=== PATIENT | male | born 1975 | race Two or more races ===

== ENCOUNTER 2025-01-29 08:40 | Outpatient (AMB) | payer OTHER, SELFPAY ==
--- NOTE | 2025-01-29 08:42 | MHC.PC.OV ---
Vital Signs 01/29/25 08:49 Height 5 ft 6 in Weight 248 lb BMI 40.0 BP 134/80 Blood Pressure Location Lt brachial Position Sitting Respiration 16 Pulse 72 Pulse Source Pulse Oximeter Temp 98.0 F Temp Source Oral Pulse Oximetry (%) 98 Oxygen Delivery Method Room Air Intake Visit Reasons: Physical xam Intake Note: patient here for new patient visit Event Lighting Specialist Required: No Allergies Penicillins (PCN) Allergy (Mild, Verified 01/29/25 08:48) UNKNOWN penicillin V Allergy (Unknown, Verified 01/29/25 08:46) unsure Medication List - Last Reconciled 01/29/25 by Larry Mukherjee CNP No Known Home Meds Tobacco use date assessed: 01/29/25 Dental Screening Dental Screen Date: 01/29/25 Did you have a dental visit in the last 12 months?: Yes Did you have a dental problem in the last 6 months where you did not have access to dental care?: No Was dental information given to patient?: Patient has dentist HPI HPI Comments History of Present Illness Details 49-year-old male presents to establish care. Prior PCP? - [facility] Last office visit - 1 year ago Last CPE/labs - Several years ago Acute issue(s) - Notes that he had a sleep study done in 04/2024 with [facility], and was diagnosed with mild sleep apnea. CPAP was not recommended. He reports mild anxiety daily for several years. He does not like crowds. He used alcohol and drugs to manage his anxiety. He has not taking any psychotropic medication for anxiety. He denies h/o psychotherapy, psychiatrist, or IPLOC. He denies depression and notes that he feels sad because he is going through a breakup with his girlfriend. He denies h/o SI/HI/AH/VH. He wants to connect with a therapist. Reports intermittent burning sensation to his left lower leg which he attributes to varicose veins. His symptoms have been ongoing for few months. No acute symptoms at this time. Past Medical History - Sleep apnea, myopia (eye exam), eczema, varicose veins bilateral lower extremity, alcohol use disorder (sober x 8 years), Heroin and cocaine/crack abuse (sober x 8 years) Surgical History - Appendectomy, right inguinal hernia repair Family History - Dad: Alcohol abuse - PGM: Diabetes, hypertension, hyperlipidemia Social History - Smokes a pack of cigarettes daily, have been smoking x 36 years, 1ppd x 18 yrs. Does not vape. Does not drink alcohol. Denies recreational drug use - Has been making unhealthy dietary choices. Active but does not exercise. Difficulty falling asleep and maintaining sleep, sleep average 4-5 hours, he snores. Health maintenance - Last eye exam was a year ago with Dr. Soriaon, in [place]. Encouraged to scheduled a follow up eye exam with his vending supervisor. Advised to sign a release for his PCP to obtain his ophthalmology record - Last dental visit was over a years ago; encouraged to schedule an appointment with his dentist for routine dental care - Last tetanus vaccine was within the past 4 years. Record not currently available. - Has not been vaccinated for the flu this season; declines vaccination [facility] Medical History (Updated 01/29/25 @ 11:52 by Larry Mukherjee CNP) Myopia Eczema Drug addiction Alcoholism Surgical History (Updated 01/29/25 @ 09:32 by Jewell Black MA) Hx of appendectomy History of hernia repair Family History (Updated 01/29/25 @ 08:57 by Jewell Black MA) Father Alcohol abuse Paternal Grandmother High blood pressure High cholesterol Diabetes Social History (Updated 01/29/25 @ 08:49 by Jewell Black MA) Housing: Apartment Patient Tobacco Use Status: Current everyday Tobacco user Cigarette Packs Per Day: 1 Cigarettes Per Day: 20 e-Cigarette/Vaping Use: Never Used Second Hand Smoke Exposure: Yes service: No Current occupational status: employed Current occupation: [employer] Current occupational exposures/hazards: Yes Cognitive needs: No Hearing needs: No Vision needs: Yes Questionnaire PHQ-9 Over the last 2 weeks, how often have you been bothered by any of the following problems? 1. Little interest or pleasure in doing things: several days 2. Feeling down, depressed, or hopeless: several days 3. Trouble falling or staying asleep, or sleeping too much: more than half the days 4. Feeling tired or having little energy: nearly every day 5. Poor appetite or overeating: nearly every day 6. Feeling bad about yourself - or that you are a failure or have let yourself or your family down: not at all 7. Trouble concentrating on things, such as reading the newspaper or watching television: nearly every day 8. Moving or speaking so slowly that other people could have noticed. Or the opposite - being so fidgety or restless that you have been moving around a lot more than usual: not at all 9. Thoughts that you would be better off or of hurting yourself in some way: not at all Total score: 13 Depression Screening Interpretation: Positive Depression Screening Done: Yes 78742 - PHQ-9 Billing: Yes Source: Developed by Drs. Medhat Wolfe, Grace Reyes, Ryan Fleming and colleagues, with an educational tiago from [employer]. Thrive Questionnaire Date Thrive assessed: 01/29/25 I am a: Patient What is your living situation today?: I have a steady place to live Within the past 12 months, did the food you bought not last and you didn't have the money to get more?: Never true Within the past 12 months, did you worry whether your food would run out before you got money to buy more?: Never true Do you have trouble paying for medicines?: No Do you have trouble getting transportation to medical appointments?: No Do you have trouble paying your heating and electricity bill?: No Do you have trouble taking care of your child, family member or friend?: No Do you have trouble with day-to-day activities such as bathing, preparing meals, shopping, managing finances, etc.?: No Are you currently unemployed and looking for a job?: No Are you interested in more education?: Yes Please select the resources that you would like help with: Education Currently or been in a relationship where the following occur: No concerns reported THRIVE Score: 0 AUDIT C Alcohol Use Questionnaire (AUDIT-C) 1. How often do you have a drink containing alcohol?: Never 3. How often do you have six or more drinks on one occasion?: Never Total Score: 0 Score Reviewed/Action Taken: Yes WENCESLAO-7 AMB Questionnaire WENCESLAO-7 Date WENCESLAO - 7 assessed: 01/29/25 Feeling nervous, anxious, or on edge: 1 = Several days Not being able to stop or control worryin = Several days Worrying too much about different things: 1 = Several days Trouble relaxin = Several days Being so restless that it is hard to sit still: 0 = Not at all Becoming easily annoyed or irritable: 1 = Several days Feeling afraid as if something awful might happen: 1 = Several days Total WENCESLAO-7 score (0-4 normal; 5-9 mild; 10-14 moderate; 15-21 severe): 6 Source: Developed by Drs. Medhat Wolfe, Grace Reyes, Ryan Fleming and colleagues, with an educational tiago from [employer]. WENCESLAO-7 Assessment Billing WENCESLAO-7 Assessment Tool: WENCESLAO-7 Assessment 20926 Review of Systems Const Details: Denies chills, Denies fatigue, Denies fever(s), Denies headache(s) and Denies weakness HEENT Denies change in vision, Denies dizziness, Denies headache(s), Denies hearing loss, Denies nasal congestion, Denies sinus pain, Denies sinus pressure and Denies sore throat Card Denies chest pain, Denies lightheadedness, Denies dyspnea and Denies other (palpitations) Resp Denies cough, Denies dyspnea and Denies wheezing GI Denies abdominal pain, Denies melena, Denies hematochezia, Denies change in bowel habits, Denies dyspepsia and Denies nausea Denies hematuria and Denies dysuria Musc Denies abnormal gait, Denies myalgias, Denies arthralgias, Denies numbness and Denies tingling Skin/Breast Denies rash, Denies unusual bruising and Denies wounds Neuro Denies abnormal gait, Denies dizziness, Denies headache(s), Denies memory loss, Denies numbness, Denies Sensory deficit (Neuro), Denies tingling and Denies weakness Psych Reports anxiety, Denies depression and Denies memory loss Endo Denies cold intolerance, Denies fatigue, Denies heat intolerance, Denies polydipsia and Denies polyuria Antony/Lymph Denies easy bleeding and Denies easy bruising Aller/Immun Denies wheezing Physical exam (Primary Care) Vital Signs: Last Vital Signs Temp 98.0 F 01/29/25 08:49 Pulse 72 01/29/25 08:49 Resp 16 01/29/25 08:49 BP 134/80 01/29/25 08:49 Pulse Ox 98 01/29/25 08:49 Oxygen Delivery Method Room Air 01/29/25 08:49 BMI result Body Mass Index 40.0 Tobacco/Smoking Status: Tobacco use Status Tobacco use date assessed 01/29/25 01/29/25 08:48 Patient Tobacco Use Status Current everyday Tobacco 01/29/25 08:49 e-Cigarette/Vaping Use Never Used 01/29/25 08:49 PHQ-9: PHQ-9 Score PHQ-9: Total score 13 01/29/25 10:07 Depression Screening Interpretation: Positive Thrive Assessment: Date of Thrive Assessment Date Thrive assessed 01/29/25 01/29/25 08:43 Currently or been in a relationship where the following occur: No concerns reported Const Other: General: no acute distress, well developed, alert and awake Nutritional Appearance: well nourished Orientation/consciousness: patient oriented x3 HENMT Head: Yes normocephalic and Yes atraumatic Ears: hearing grossly normal bilaterally and TM's normal bilaterally General nose exam: Normal external nose present and Normal nares present Mouth: Normal oral and palatal mucosa present and moist mucous membranes Teeth and gingiva: dentition normal Throat: Yes oropharynx normal Eyes Pupils: Equal, round and reactive pupils present and Pupil accommodation reflex normal EOM: EOMs intact bilaterally Neck Neck: Yes normal visual inspection, Yes no lymphadenopathy and Yes trachea midline Thyroid: Thyroid normal Carotids: no bruits Lymphatic: no lymphadenopathy noted Chest Chest palpation & inspection: normal inspection of the chest Resp Effort & Inspection: normal respiratory effort Auscultation: clear to auscultation bilaterally Cardio Rate: regular rate Rhythm: regular rhythm Heart sounds: S1 normal heart sound present, S2 normal heart sound present, no gallops, no murmurs and no rubs Bruits: no abdominal aortic bruits and no carotid bruits GI Palpation (GI): No Abdominal aortic bruit present, Soft to palpation, nontender, No hepatosplenomegaly present and No Rebound tenderness present Auscultation: normal bowel sounds General: Yes no CVA tenderness Back/Spine/Pelvis Back: no CVA tenderness Cervical Spine: cervical ROM normal and No Cervical spine tenderness Thoracic/Lumbar Spine: thoraco-lumbar ROM normal, No pain with thoraco-lumbar ROM, No thoracic spinal tenderness and No lumbar spinal tenderness Skin General: warm and dry. Normal skin color. Normal skin turgor Lesions: no lesions Rashes: no rashes Trauma: no lacerations or abrasions Wounds: no wounds Nails: normal Neuro General: patient oriented x3, gait normal and CN's II-XI intact bilaterally Cranial nerves: Yes Equal, round and reactive pupils present Cognition (Neuro): normal cognition Gait exam (Neuro): Normal gait present Motor exam (neuro): 5/5 motor strength present throughout Sensory Exam: No Sensory deficit (Neuro) Deep tendon reflexes (DTR's): Right patellar reflex intensity grade: 2+ and Left patellar reflex intensity grade: 2+ Extrem General: Yes normal to inspection, No edema and No calf tenderness. Moderately engorged veins to right popliteal fossa and left lower leg, no erythema erythema or edema to surrounding skin, CMS normal Psych Appearance: grossly normal Affect: normal affect Attitude: cooperative Thought process: Normal thought process present Coding Level of Care Code New Pt Level 4 (83926) New Pt Prev Care 40-64y(02052) Diagnoses Normal physical examination, routine Z00.00 Anxiety F41.9 Cigarette smoker F17.210 Sleep apnea G47.30 Morbid obesity with BMI of 40.0-44.9, adult E66.01; Z68.41 Varicose veins of both lower extremities I83.93 Laboratory tests ordered as part of a complete physical exam (CPE) Z00.00 Additional Codes WENCESLAO-7 Assessment Billing - WENCESLAO-7 Assessment Tool: WENCESLAO-7 Assessment 81168 ([id number]) PHQ-9 - 78433 - PHQ-9 Billing: Yes ([id number]) Assessment & Plan Assessment & Plan (1) Normal physical examination, routine: Code(s): Z00.00 - Encounter for general adult medical examination without abnormal findings Category: Medical Plan: No significant functional limitation noted. Healthy diet and routine exercise encouraged. Perform lab work and follow-up for telehealth visit in 2-4 weeks. Return sooner with symptoms or concerns. Verbalized understanding and agreed with the plan. (2) Anxiety: Code(s): F41.9 - Anxiety disorder, unspecified Category: Medical Plan: He reports mild anxiety daily for several years. He does not like crowds. He used alcohol and drugs to manage his anxiety. He has not taking any psychotropic medication for anxiety. He denies h/o psychotherapy, psychiatrist, or IPLOC. He denies depression and notes that he feels sad because he is going through a breakup with his girlfriend. He denies h/o SI/HI/AH/VH. He wants to connect with a therapist. PHQ-9 and WENCESLAO-7 scores revealed moderate depression and mild anxiety respectively. Declines medication treatment for anxiety at this time. Routine exercise encouraged. Message sent to the community health health social work professor to connect the patient to a therapist. Follow-up with worsening or new symptoms. Verbalized understanding and agreed with the plan. (3) Cigarette smoker: Code(s): F17.210 - Nicotine dependence, cigarettes, uncomplicated Category: Social Hx Plan: He smokes a pack of cigarettes daily, have been smoking x 36 years, 1ppd x 18 yrs. Instructed on the health risks and complications of cigarette smoking and cessation encouraged. Nicotine patch ordered; advised to use as prescribed. Follow-up as needed. Verbalized understanding and agreed with the plan. (4) Sleep apnea: Code(s): G47.30 - Sleep apnea, unspecified Category: Medical Plan: He reports difficulty falling asleep and maintaining sleep. He sleep average 4-5 hours. He snores. He notes that he had a sleep study done in 04/2024 with [facility] of [facility], and was diagnosed with mild sleep apnea. CPAP was not recommended. Instructed on sleep hygiene. Routine exercise encouraged for weight management. Referred [place] [facility] [place]. Verbalized understanding and agreed with the plan. (5) Morbid obesity with BMI of 40.0-44.9, adult: Code(s): E66.01 - Morbid (severe) obesity due to excess calories; Z68.41 - Body mass index [BMI] 40.0-44.9, adult Category: Medical Plan: He currently weighs 248 lb, BMI is 40.0. Has been making all of the dietary choices and does not exercise. Healthy diet and routine exercise encouraged. Referred to [facility] php mysql web developer/dietitian. Follow-up as needed. Verbalized understanding and agreed with the plan. (6) Varicose veins of both lower extremities: Code(s): I83.93 - Asymptomatic varicose veins of bilateral lower extremities Category: Medical Plan: Reports intermittent burning sensation to his left lower leg which he attributes to varicose veins. His symptoms have been ongoing for few months. No acute symptoms at this time. Moderately engorged veins to right popliteal fossa and left lower leg, no erythema erythema or edema to surrounding skin, CMS normal. Routine exercise encouraged for weight management and improved circulation. Elevate legs to reduce venous pressure and avoid prolonged standing/sitting. Follow-up with worsening or new signs and symptoms. Verbalized understanding and agreed with the plan. (7) Laboratory tests ordered as part of a complete physical exam (CPE): Code(s): Z00.00 - Encounter for general adult medical examination without abnormal findings Category: Medical Plan: Fasting labs ordered as part of a complete physical exam. Advised to fast for at least 10 hours before getting labs drawn. May drink water Verbalized understanding and agreed with treatment plan. Orders: Orders PSA, Ultra Sensitive Today Z00.00 - Encounter for general adult medical examination without abnormal findings Complete Blood Count Auto Diff Today Z00.00 - Encounter for general adult medical examination without abnormal findings Comprehensive [place]. Panel Fast Today Z00.00 - Encounter for general adult medical examination without abnormal findings Lipid Panel Today Z00.00 - Encounter for general adult medical examination without abnormal findings Microalbumin, Random (w Creat) Today Z00.00 - Encounter for general adult medical examination without abnormal findings TSH reflex Free T4 Today Z00.00 - Encounter for general adult medical examination without abnormal findings UA CC w/rflx Micro + Cult Today Z00.00 - Encounter for general adult medical examination without abnormal findings Vitamin B12 and Folate Today Z00.00 - Encounter for general adult medical examination without abnormal findings Referrals Nutrition/Dietitian Referral E66.01 - Morbid (severe) obesity due to excess calories, Z68.41 - Body mass index [BMI] 40.0-44.9, adult Sleep Medicine Referral G47.30 - Sleep apnea, unspecified Medications: New nicotine 1 patch transdermal DAILY 42 ea 1RF 6 weeks
--- OUTSIDE RECORDS SUMMARY | 2025-01-29 08:44 | XMS_ITS | Clinical Summary ---
Author Organization [facility] ity Address [address] [place] [address] Care Team Providers Care Pillow Filler Name Role Phone Jamilah Godinez MD Primary Care Provider [phone] Social History Tobacco Use Types Packs/Day Years Used Date Smoking Tobacco: Every Day Cigarettes Smokeless Tobacco: Never Alcohol Use Standard Drinks/Week Comments Not Currently 0 (1 standard drink = 0.6 oz pur e alcohol) Sex and Gender Information Value Date Recorded Sex Assigned at Not on file Legal Sex Male 4:37 AM EST Gender Identity Not on file Sexual Orientation Not on file Obstetrics History Last Filed Vital Signs Vital Sign Reading Time Taken Comments Blood Pressure 119/83 11/21/2023 3:04 PM EDT Pulse 99 11/21/2023 3:04 PM EDT Temperature - - Respiratory Rate - - Oxygen Saturation - - Inhaled Oxygen Concentration - - Weight 112 kg (246 lb 12.8 oz) 11/21/2023 3:04 P M EDT Height 167.6 cm (5' 6 ) 11/21/2023 3:04 PM EDT Body Mass Index 39.83 11/21/2023 3:04 PM EDT Plan of Treatment Health Maintenance Due Date Last Done Comments DTaP,Tdap,and Td Vaccines (1 - Tdap) 09/23/1994 Hepatitis B Vaccines (1 of 3 - 19+ 3-dose series) 09/23/1994 Pneumococcal Vaccine: Pediat rics (0 to 5 Years) and At-Risk Patients (6 to 49 Years) (1 of 2 - PCV) 09/23/1994 Cholesterol Screening (Lipid Panel) 06/17/2022 Colorectal Cancer Screening: Colonoscopy 06/17/2022 Depression Screening 06/17/2022 HIV Screening 06/17/2022 Hepatitis C Screening 06/17/2022 Social Influencers of Health Screening 06/17/2022 COVID-19 Vaccine (1 - 2023-2 5 season) 2024 Influenza Vaccine (#1) 2025 HIB Vaccines Aged Out No longer eligi ble based on patient's age to complete this topic HPV Vaccines Aged Out No longer eligi ble based on patient's age to complete this topic Hepatitis A Vaccines Aged Out No long er eligible based on patient's age to complete this topic IPV Vaccines Aged Out No longer eligi ble based on patient's age to complete this topic MMR Vaccines Aged Out No longer eligi ble based on patient's age to complete this topic Meningococcal ACWY Vaccine Aged Out N o longer eligible based on patient's age to complete this topic Meningococcal B Vaccine Aged Out No l onger eligible based on patient's age to complete this topic RSV Immunization Patients Un tariq 20 months Aged Out No longer eligible b ased on patient's age to complete this topic Varicella Vaccines Aged Out No longer eligible based on patient's age to complete this topic Care Teams Pillow Filler Relationship Specialty Start Date End Date Jamilah Godinez MD PCP - General 05/23/23
[2025-01-29 08:49] VITALS: BP 134/80; PULSE 72; RESP 16; TEMP 36.7; O2SAT 98; BMI 40.0
== END 2025-01-29 09:28 | disposition home or self-care (01) ==
LOC: HO.HMCFM 08:41
PROVIDERS: PCP Hospitalist; Visit Provider Nurse Practitioner Family
DX: Z00.00 Encounter for general adult medical examination without abnormal findings (principal); F41.9 Anxiety disorder, unspecified; E66.01 Morbid (severe) obesity due to excess calories; Z68.41 Body mass index [BMI] 40.0-44.9, adult; F17.210 Nicotine dependence, cigarettes, uncomplicated; G47.30 Sleep apnea, unspecified; I83.93 Asymptomatic varicose veins of bilateral lower extremities

== ENCOUNTER → 2025-01-29 08:40 | Outpatient (BNVA) | payer OTHER, SELFPAY | PROVIDERS: PCP Hospitalist; Visit Provider Nurse Practitioner Family | DX: Z00.00 Encounter for general adult medical examination without abnormal findings (principal); F41.9 Anxiety disorder, unspecified; G47.30 Sleep apnea, unspecified; E66.01 Morbid (severe) obesity due to excess calories; Z68.41 Body mass index [BMI] 40.0-44.9, adult; I83.93 Asymptomatic varicose veins of bilateral lower extremities; F17.210 Nicotine dependence, cigarettes, uncomplicated; Z13.31 Encounter for screening for depression; Z13.39 Encounter for screening examination for other mental health and behavioral disorders | CPT/HCPCS: 96127 ==

== ENCOUNTER 2025-02-13 11:30 | Outpatient (REF) | payer OTHER, SELFPAY ==
--- OUTSIDE RECORDS SUMMARY | 2025-02-13 11:32 | XMS_ITS | Clinical Summary ---
Author Organization [facility] ity Address [address] [place] [address] Care Team Providers Care Hydrographer Name Role Phone Jamilah Godinez MD Primary Care Provider [phone] Social History Tobacco Use Types Packs/Day Years [...] Panel) 06/17/2022 Colorectal Cancer Screening: Colonoscopy 06/17/2022 HIV Screening 06/17/2022 Hepatitis C Screening 06/17/2022 Social Influencers of Health Screening 06/17/2022 COVID-19 Vaccine (1 - 2023-2 5 season) 2024 Depression Screening 07/15/2024 Influenza Vaccine (#1) 2025 HIB Vaccines Aged [...] age to complete this topic Care Teams Hydrographer Relationship Specialty Start Date End Date Jamilah Godinez MD PCP - General 05/23/23
[2025-02-13 14:12] LABS: MANUAL DIFF FLAG NO
[2025-02-13 14:20] LABS: Hematocrit 41.0 % (42.0-52.0); Hemoglobin 14.2 g/dl (14.0-18.0); Imm Gran Abs Auto 0.02 X10*3/uL (0.00-0.03); Imm Gran Pct Auto 0.4 % (0.0-0.4); Lymphocytes Absolute Auto 1.9 X10*3/uL (1.2-4.9); Mean Corpuscular HGB Conc 34.6 g/dl (31.0-36.0); Mean Corpuscular Hemoglobin 31.4 pg (27.0-33.0); Mean Corpuscular Volume 90.7 fL (80.0-98.0); NRBC Abs Auto 0.000 X10*3/uL (0.0-0.012); NRBC Pct Auto 0.0 /100WBC (0.0-0.2); Platelet Count 302 X10*3/uL (160-400); Red Blood Count 4.52 X10*6/uL (4.60-5.80); White Blood Count 5.5 X10*3/uL (4.8-10.8)
[2025-02-13 15:02] LABS: Appearance Urine Clear; Glucose Urine UA Negative (Negative); PH 6.0 (5.0-9.0); Specific Gravity - Urine 1.015 (1.005-1.025)
[2025-02-13 15:35] LABS: Alanine Aminotransferase 33 U/L (0-40); Albumin Level 4.4 g/dL (3.5-5.0); Alkaline Phosphatase 91 U/L (39-117); Anion Gap 10 (12-20); Aspartate Amino Transferase 26 U/L (5-37); Blood Urea Nitrogen 14 mg/dL (9-16); Calcium 8.9 mg/dL (8.4-10.2); Carbon Dioxide 26 mmol/L (22-29); Chloride 107 mmol/L (96-108); Cholesterol 179 mg/dL (<200); Estimated Glomerular Filt Rate > 60; HDL Cholesterol 31 mg/dL (>40); Potassium 4.1 mmol/L (3.3-5.1); Sodium 139 mmol/L (135-145); Total Protein 7.4 g/dL (6.5-8.0); Triglycerides 179 mg/dL (<150)
[2025-02-13 16:11] LABS: Folate 6.7 ng/mL (> or = 4.0); Vitamin B12 904 pg/mL (200-900)
[2025-02-17 22:33] LABS: PSA, Ultra Sensitive 0.80 ng/mL
== END 2025-02-13 11:31 | disposition home or self-care (01) ==
LOC: HO.HMGCLDS 11:30
PROVIDERS: PCP Nurse Practitioner Family; Visit Provider Nurse Practitioner Family
DX: Z00.00 Encounter for general adult medical examination without abnormal findings (principal)
CPT/HCPCS: 36415; 80053; 80061; 81003; 82043; 82570; 82607; 82746; 84153; 84443; 85025

== ENCOUNTER 2025-04-19 14:27 | Outpatient (AMB) | payer OTHER, SELFPAY ==
--- NOTE | 2025-04-19 14:19 | A.OFFPC_ITS ---
Intake Visit Reasons: 2-4 labs reviewed Intake Note: patient here for 2-4 Telehealth follow up on lab review Aging Department Supervisor Required: No Allergies Penicillins (PCN) Allergy (Mild, Verified 04/19/25 14:19) UNKNOWN penicillin V Allergy (Unknown, Verified 04/19/25 14:19) unsure Tobacco use date assessed: 04/19/25 Dental Screening Dental Screen Date: 04/19/25 Did you have a dental visit in the last 12 months?: Yes Did you have a dental problem in the last 6 months where you did not have access to dental care?: No Was dental information given to patient?: Patient has dentist HPI HPI Comments History of Present Illness Details 49-year-[facility] of recent lab results. He notes that he eats a lot of fast foods. He is active but does not exercise. He offers no complaints and denies acute symptoms at this time. [facility] Medical History (Updated 04/19/25 @ 14:24 by Larry Mukherjee CNP) Myopia Eczema Drug addiction Alcoholism Surgical History (Updated 01/29/25 @ 09:32 by Jewell Black MA) Hx of appendectomy History of hernia repair Family History (Updated 01/29/25 @ 08:57 by Jewell Black MA) Father Alcohol abuse Paternal Grandmother High blood pressure High cholesterol Diabetes Social History (Updated 01/29/25 @ 08:49 by Jewell Black MA) Housing: Apartment Patient Tobacco Use Status: Current everyday Tobacco user Cigarette Packs Per Day: 1 Cigarettes Per Day: 20 e-Cigarette/Vaping Use: Never Used Second Hand Smoke Exposure: Yes service: No Current occupational status: employed 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 Medhat Wolfe, Grace Reyes, Ryan Fleming and colleagues, with an educational tiago from [employer] Review of Systems Const Details: Denies chills, Denies fatigue, Denies fever(s), Denies headache(s) and Denies weakness Cardiac Denies chest pain, Denies claudication, Denies leg edema, Denies lightheadedness, Denies palpitations, Denies dyspnea, Denies dyspnea on exertion, Denies orthopnea and Denies other (Loss of consciousness) Resp Denies cough, Denies excessive phlegm production, Denies dyspnea, Denies dyspnea on exertion, Denies snoring and Denies wheezing Physical exam (Primary Care) Tobacco/Smoking Status: Tobacco use Status Tobacco use date assessed 04/19/25 04/19/25 14:20 Patient Tobacco Use Status Current everyday Tobacco 04/19/25 14:20 e-Cigarette/Vaping Use Never Used 04/19/25 14:20 Thrive Assessment: Date of Thrive Assessment Date Thrive assessed 01/29/25 04/19/25 14:20 Const Other: Patient is alert and oriented x3 Telehealth Telehealth Telehealth Platform: Telephone Location of provider rendering services: practice address Location of patient: address on file Patient Identification confirmed using: Name, : Yes Telehealth method: voice only Patient verbally consented to treatment: Yes Patient verbally consented to billing insurance company: Yes Patient informed of any privacy concerns related to visit: Yes Coding Level of Care Code Tele Est Pt Level 3 (87925) Diagnoses Dyslipidemia E78.5 Time Spent (min) 15 Assessment & Plan Assessment & Plan (1) Dyslipidemia: Code(s): E78.5 - Hyperlipidemia, unspecified Category: Medical Plan: Recent triglycerides and LDL levels are slightly elevated, 179 and 113 respectively, LDL level is low, 31. He eats a lot of fast foods. He is active but does not exercise. Advised to limit foods high in saturated fat and avoid foods high in trans fat. Routine exercise encouraged. Fast for 10-12 hours, may drink water, and perform lipid panel blood work 2-3 days before next visit. Follow-up for telehealth visit in 2 months. Return sooner with symptoms or concerns. Verbalized understanding and agreed with the plan. Orders: Orders Vitamin D 25-OH Total Today Z00.00 - Encounter for general adult medical examination without abnormal findings Lipid Panel 2 Months E78.5 - Hyperlipidemia, unspecified
--- OUTSIDE RECORDS SUMMARY | 2025-04-19 16:53 | XMS_ITS | Clinical Summary ---
Author Organization [facility] ity Address [address] [place] [address] Care Team Providers Care Distribution Dispatcher Name Role Phone Jamilah oGdinez MD Primary Care Provider [phone] Social History Tobacco Use Types Packs/Day Years [...] Health Maintenance Due Date Last Done Comments Colorectal Cancer Screening: Colonoscopy 1975 DTaP,Tdap,and Td Vaccines (1 - Tdap) 09/23/1994 Hepatitis B Vaccines (1 of 3 - 19+ 3-dose series) 09/23/1994 Pneumococcal Vaccine: Pediat rics (0 to 5 Years) and At-Risk Patients (6 to 49 Years) (1 of 2 - PCV) 09/23/1994 Cholesterol Screening (Lipid Panel) 06/17/2022 HIV Screening 06/17/2022 Hepatitis C Screening 06/17/2022 Social Influencers of Health Screening 06/17/2022 Depression Screening 07/15/2024 COVID-19 Vaccine (1 - 2023-2 5 season) 2025 Influenza Vaccine (#1) 2025 RSV Immunization Adult Patie nts (1 - 1-dose 75+ series) 09/23/2050 HIB Vaccines Aged Out No longer eligi [...] age to complete this topic Care Teams Distribution Dispatcher Relationship Specialty Start Date End Date Jamilah Godinez MD PCP - General 05/23/23
== END 2025-04-19 16:27 | disposition home or self-care (01) ==
LOC: HO.HMCFM 14:27
PROVIDERS: PCP Nurse Practitioner Family; Visit Provider Nurse Practitioner Family
DX: E78.5 Hyperlipidemia, unspecified (principal)